=== PATIENT | female | born 1985 | race Caucasian/White ===

== ENCOUNTER 2023-06-05 15:09 | Emergency (ER) | payer OTHER ==
[~2023-06-05] VITALS: Ht 152.4 cm; Wt 59.0 kg
[2023-06-05 15:38] VITALS: BP 106/58; PULSE 94; RESP 16; O2SAT 100
[2023-06-05] MEDS ORDERED: CLIN-141 PO (19:06)
[2023-06-05] MEDS ORDERED: KETO10 PO (19:06)
[2023-06-05] MEDS ORDERED: HYDROCODONE/ACETAMINOPHEN 5/325 MG TAB PO ONE (19:30)
== END 2023-06-05 19:28 | disposition home or self-care (01) ==
LOC: EDH 15:09
DX: K02.9 Dental caries, unspecified (principal); Z79.899 Other long term (current) drug therapy; Z98.890 Other specified postprocedural states